=== PATIENT | female | born 1985 | race Caucasian/White ===

== ENCOUNTER 2017-12-22 19:23 | Emergency (ER) | payer OTHER, SELFPAY ==
[2017-12-22 19:24] VITALS: BP 129/79; PULSE 70; RESP 18; TEMP 36.6; O2SAT 100; BMI 21.4
[2017-12-22] MEDS: Ondansetron 4 MG/2 ML Vial IV (19:56)
[2017-12-22] MEDS: Morphine 4 MG/ML Syringe IV (19:56)
[2017-12-22 20:06] LABS: Bacteria 0 SEEN /hpf (None Seen); Mucous, Urine 0 SEEN /hpf (<or=2+); Red Blood Cells-Urine 0 SEEN /hpf (0-5); White Blood Cells 0 SEEN /hpf (0-5)
[2017-12-22 20:09] LABS: Absolute Lymphocyte Count 2.33 X10^3/ul (0.83-4.51); Absolute Neutrophil Count 3.9 X10^3/uL (2.0-7.7); Basophil# 0.02 X10^3/uL; Basophil% 0.3 % (0-1); Eosinophil# 0.05 X10^3/uL; Eosinophils% 0.7 % (0-5); Hematocrit 39.4 % (37-47); Hemoglobin 13.1 g/dl (12.0-15.0); Lymphocyte # 2.33 X10^3/ul (4.0); Lymphocyte % 34.7 % (19-41); Mean Corp Hgb Conc 33.2 g/gl (32-36); Mean Corpuscular Volume 93.4 fL (81-99); Mean Platelet Vol. 11.5 fl (6.2-12.0); Monocyte# 0.37 X10^3/uL; Monocyte% 5.5 % (0-10); Neutrophil # 3.94 X10^3/uL (2.7-7.7); Neutrophil % 58.8 % (47-70); Platelet Count 152 K/mm3 (150-450); RBC Distribution Width CV 12.2 % (11.6-14.6); RBC Distribution Width SD 41.1 fl (35.1-43.9); Red Blood Count 4.22 M/mm3 (4.2-5.4); White Blood Count 6.7 K/mm3 (4.4-11.0)
[2017-12-22 20:10] LABS: Color, Urine Yellow (Yellow); Glucose, Dipstick Normal (Normal); Ketone-Dipstick Negative (Negative); Leukocyte Esterase-Dipstick Negative /ul (Negative); Nitrite-Dipstick Negative (Negative); Occult Blood-Urine 10 /ul (Negative); POSITIVE COUNT NO; POSITIVE DIFFERENTIAL NO; POSITIVE MORPHOLOGY NO; Protein-Dipstick Negative (Negative); Urine Bilirubin Dipstick Negative (Negative); Urine Clarity Sl. Cloudy (Clear); Urine Urobilinogen Normal (Normal); Urine pH 6.5 (5.0 - 8.0)
[2017-12-22 20:18] LABS: Squamous Epithelial Cells - UA 0-5 SEEN /hpf (5-10)
[2017-12-22 20:29] LABS: Anion Gap 4 (5-15); BUN 15 mg/dL (7-18); BUN/Creat Ratio 19.1 RATIO (10-20); Calcium,Total 8.6 mg/dL (8.5-10.1); Chloride 105 mmol/L (98-107); Creatinine, Serum 0.79 mg/dL (0.55-1.02); EST Glomerular Filtration Rate 89 mL/min (>60); Est Glom Filt Rate - Afr Amer 108 mL/min (>60); Estimated Creatinine Clearance 102.01 ml/min; Glucose 84 mg/dL (74-106); Potassium 3.6 mmol/L (3.5-5.1); Sodium Level 138 mmol/L (136-145)
[2017-12-22 20:36] LABS: Pregnancy, Serum, hCG Quali. NEGATIVE Negative (0-9 Nonpreg)
--- NOTE | 2017-12-22 20:56 | ED.VISSUMM ---
- ER Visit Summary Date of Service: 12/22/17 Chief Complaint: Atraumatic bilateral low back pain History of Present Illness: The patient is a 32 F who presents with bilateral low back pain that she localizes over the lumbar region. She reports history of IgA nephropathy that was diagnosed 10 years ago. She denies fever, chills night sweats. She does report nausea without vomiting or diarrhea. She denies dysuria, frequency, urgency or hematuria. There is no other symptoms or complaints. Please read written note for complete detail Physical Examination: Vital signs noted and blood pressure is slightly elevated 129/79. HEENT exam is unremarkable. Heart is regular without murmur, gallop or rub. S1 and S2 are normal. Lungs are clear to auscultation with good movement of air bilaterally. Abdomen soft nontender bowel sounds are present normal. There is no paraspinal megaly. There is no CVA tenderness. There is no reproducible low back pain. There is no pain with rotation. There is no neurovascular findings lower extremity. Test Results: CBC and BMP are unremarkable. UA revealed blood macro, 10. Serum test was negative. This was obtained because she has been bleeding for 14 days and her last menses was not normal. Emergency Department Course and Treatment: Because of the abnormal vaginal bleeding serum qualitative test was obtained. With her history of nephropathy BMP and UA was obtained. Since the pain was not reproducible CBC was obtained to evaluate for anemia infection etc. Treatment Plan: Patient was medicated with 4 mg of Zofran 4 mill grams of morphine IV push. Her pain on reassessment was a 2. She does not appear in any discomfort. She had no questions and felt comfortable going home. Disposition: Discharged home in stable condition Impression: Atraumatic bilateral lumbar pain This note was generated with [employer] dictation software. It may contain incorrect words, spelling, and punctuation that were not noted in review of the chart prior to signing ED Disposition - Plan for ED Patient: Disposition: Home or Assisted Living Chief Complaint: Back Instructions: ED Neck Back Pain General Referrals: Criss Turpin NP-C [Primary Care Provider] - 3-5 Days if not improving
[2017-12-22 21:20] VITALS: RESP 18
== END 2017-12-22 21:21 | disposition home or self-care (01) ==
PROVIDERS: Emergency Provider Emergency Medicine; Family Provider Nurse Practitioner; PCP Nurse Practitioner
DX: M54.5 Low back pain (principal); N02.8 Recurrent and persistent hematuria with other morphologic changes
CPT/HCPCS: 80048; 81001; 84703; 85025; 96374; 96375; 99283; A4216; J2405

== ENCOUNTER → 2018-11-01 | Outpatient (CLI) | payer OTHER, SELFPAY ==
[2018-11-01 15:49] VITALS: BMI 19.8
--- NOTE | 2018-11-01 15:56 | RAD_ITS ---
STUDY: X-RAY - LEFT HAND REASON FOR EXAM: Female, 33 years old. Pain after acute blunt trauma. TECHNIQUE: 3 view(s) of the hand. COMPARISON: None. FINDINGS: Normal radiocarpal articulation. Normal distal radioulnar joint. Normal visualized carpal bones. Normal carpal articulations Normal carpometacarpal articulation of the thumb. Normal second through fifth carpometacarpal joints. Normal metacarpi. Normal metacarpophalangeal joint of the thumb. Normal interphalangeal joint of the thumb. Normal proximal and distal phalanges of the thumb. Normal metacarpophalangeal joints of the second through fifth fingers. Normal proximal and distal interphalangeal joints of the second through fifth fingers. Normal phalanges of the second through fifth fingers. The soft tissue structures are unremarkable. RAD/Hand Min 3 Views IMPRESSION: Normal x-ray examination of the hand. Electronically Signed: Michelle Payne MD at 16:17 EDT , Service support ,
== END | disposition home or self-care (01) ==
LOC: HPRAD 15:55
PROVIDERS: Family Provider Nurse Practitioner; PCP Nurse Practitioner; Referring Provider Physician Assistant; Visit Provider Physician Assistant
DX: S69.92XA Unspecified injury of left wrist, hand and finger(s), initial encounter (principal)
CPT/HCPCS: 73130

== ENCOUNTER 2021-01-08 16:00 | Outpatient (CLI) | payer OTHER, SELFPAY ==
[2021-01-08 16:25] VITALS: BP 104/57; PULSE 53; RESP 16; TEMP 36.7; O2SAT 100; BMI 20.3
[2021-01-08] MEDS: 0.9% Saline Lock 10 ML Syringe IV (16:38)
[2021-01-08 17:15] VITALS: BP 106/55; PULSE 82; RESP 16; TEMP 37.2; O2SAT 100
[2021-01-08 18:19] VITALS: BP 106/55; PULSE 55; RESP 16; TEMP 36.8; O2SAT 100
== END 2021-01-08 18:20 | disposition home or self-care (01) ==
LOC: MS3OUT 16:00 → MS3 16:01
PROVIDERS: PCP Nurse Practitioner; Referring Provider Nurse Practitioner Adult Health; Visit Provider Nurse Practitioner Adult Health
DX: Z23 Encounter for immunization (principal); U07.1 COVID-19
CPT/HCPCS: J7050; M0245; Q0245; A4216

== ENCOUNTER 2021-04-10 17:51 | Day surgery (SDC) | payer OTHER, SELFPAY ==
--- NOTE | 2021-04-10 | FALS_PTH ---
PATIENT: KATLIN ROSENTHAL LOC: [facility] [place] U#:[id number] AGE/SX: 35/F ROOM: RE04/10/[address]: Dr. Joan Morris, MDDOB: 1985 BED: DIS: 04/11/2021 SPEC #: [id number] RECD: 04/12/21 07:37 STATUS: TIFFANI LONGKoffi #: [id number] SUSY: 04/10/21 00:[address]: Joan Morris DEPT: SURGICAL PATHOLOGY RECD BY: Rafael Gonzalez ENTERED: 04/12/21 11:24 SP TYPE: FALL TUBES OTHR DR: Criss Turpin NP-C Tissues: A - Fallopian tube B - OVARIAN CYST C - OVARIAN CYST Procedures: Surgery Specimen Level II Surgery Specimen Level IV HEADER OPERATION: Diagnostic laparoscopy, bilateral salpingectomy, bilateral ovarian cystectomy PRE-OP DIAGNOSIS: Torsion of left ovary, abdominal pain TISSUE SUBMITTED: A - Bilateral fallopian tubes, B - Left ovarian cyst wall, C - Right ovarian cyst wall MICROSCOPIC DIAGNOSIS A. Bilateral fallopian tubes, salpingectomy: Bilateral fallopian tubes, no pathologic diagnosis. B. Left ovarian cyst wall: Portion of ovarian tissue with corpus luteal cyst. C. Right ovarian cyst wall: Portion of ovarian tissue consistent with simple serous cystadenoma. SJ:jim 04/13/2021 COMMENT Case has been reviewed in consultation with Dr. Licona who concurs with the above diagnosis. IDC:AM MICROSCOPIC DESCRIPTION Slides are reviewed. GROSS DESCRIPTION A - Received in fixative is one container labeled with the patient's name and designated bilateral fallopian tubes. The specimen consists of bilateral fallopian tubes including fimbrial ends measuring 6 cm in length and 0.6 cm in diameter and 5.5 cm in length and 0.6 cm in diameter. The fallopian tubes are not identified as right or left. Sections reveal unremarkable cut surfaces. [employer] Biller sections are submitted in two cassettes with each cassette containing one fallopian tube. B - Received in fixative is one container labeled with the patient's name and designated left ovarian cyst wall. The specimen consists of multiple pieces of siegel soft tissue that in aggregate measure 2 x 1.5 x 0.3 cm. The larger pieces are bisected. The entire specimen is submitted in one cassette. C - Received in fixative is one container labeled with the patient's name and designated right ovarian cyst wall. The specimen consists of a previously opened piece of siegel soft tissue consistent with cyst wall measuring 5.5 x 1 x 0.5 cm. The outer surface of the cyst is smooth. The inner surface is focally ragged. The cyst wall measures up to 0.2 cm in thickness. Also present in the container is detached pieces of siegel soft tissue measuring 2 x 0.2 x 0.1 cm. The entire specimen is submitted in two cassettes. / JACKLYN:jim 04/12/2021 TC:1 CPT: 77262 x2, 93641 x2
[2021-04-10 17:51] VITALS: BP 137/74; PULSE 73; RESP 14; TEMP 37; O2SAT 100; BMI 20.7
--- NOTE | 2021-04-10 18:04 | EDS_ITS ---
HPI HPI - GI History of Present Illness Chief Complaint: Abd Pain Narrative Narrative: Patient with remote history of appendectomy presents with right upper quadrant pain that she has had for the last week. She states her pain was intermittent and she had been feeling well all week. On Monday, 4 days ago, she had nausea and vomited twice which resolved. Her right upper quadrant abdominal pain improved and was gone last evening. This morning when she woke up, she started feeling badly again. She was able to eat breakfast which may have made her pain worse in her right upper quadrant. She denies any fevers or chills. No other exacerbating or alleviating factors. She denies any dysuria or hematuria. Last normal menstrual period last month around March 13. She states she is not because her had a vasectomy. Her pain is in the right upper quadrant of her abdomen radiating towards the epigastrium and also down at times. [facility] Medical History Arthritis Kidney disease Pulmonary valve anomaly Home Medications spironolactone 25 mg PO BID 12/22/17 [History Last Taken Unknown] Allergy/AdvReac Type Severity Reaction Status Date / Time azithromycin [From Zithromax] Allergy Hives Verified 04/10/21 17:53 propoxyphene Allergy Hives Verified 04/10/21 17:53 [From Darvocet-N] Surgical History History of appendectomy Social History Smoking Status: Never smoker alcohol intake: never ROS ROS ED ROS Narrative Constitutional: No fever, no chills. HEENT: No sore throat. No neck pain. No loss of vision. No rhinorrhea. Cardiovascular: No chest pain. No palpitations. No pedal edema. Respiratory: No cough, no shortness of breath. Abdominal: Right upper quadrant abdominal pain. No nausea. No vomiting currently, resolved on Monday, 4 days ago. Genitourinary: No dysuria. No hematuria. Musculoskeletal: No myalgias. No arthralgias. Neurologic: No headaches. No dizziness. No lightheadedness. Skin: No rash. No change in color. Psychiatric: No depression. No anxiety. EXAM Physical Exam Narrative Exam Narrative: Afebrile. Vital signs noted. HEENT: Normocephalic. Atraumatic. PERRL, EOMI. Neck soft and supple. No point tenderness or step off. Cardiovascular: Regular rate and rhythm. No murmurs, rubs, or gallops appreciated. Respiratory: No tachypnea. Lungs clear to auscultation bilaterally. Gastrointestinal: Abdomen soft, tenderness to palpation right upper quadrant and epigastrium with normoactive bowel sounds. No rebound or guarding, as she has inconsistent questionable Law sign. Neurological: Awake. Alert. Nonfocal, nonlateralizing. Skin: No rash. Normal color. No pallor. Musculoskeletal: No pedal edema. Full range of motion extremities. Const Vital Signs: 04/10/21 17:51 04/10/21 19:51 Temperature 98.6 F Temperature Source Temporal Pulse Rate 73 88 Respiratory Rate 14 18 Blood Pressure 137/74 H 134/58 H Blood Pressure Mean 95 83 Pulse Ox 100 99 Oxygen Delivery Method Room Air Room Air MDM MDM MDM Narrative Medical decision making narrative: Comprehensive work-up was pursued. Given her right upper quadrant pain ultrasound will be obtained along with CBC, CMP, and lipase. She was administered a bolus of normal saline intravenously along with morphine and ondansetron. She has a slightly elevated white count of 11.1, hemoglobin stable at 13.0. Her comprehensive metabolic panel is grossly unremarkable. LFTs are normal. Lipase is normal at 142. I added a serum test which is negative. This is because she required more morphine and additional dose was given. This controlled her pain mildly, but then she began having increasing pain, crying on the bed. She now has lower quadrant abdominal pain mainly on the right. She states that the pain also radiates towards the left. She was given a milligram of Dilaudid intravenously for analgesia. Initially I had ordered a gallbladder ultrasound which shows unremarkable gallbladder. There is a moderate amount of free fluid in the abdomen. The neurology technologist had been called in so I did order a pelvic ultrasound which is currently pending. Results of her pelvic ultrasound show she has bilateral ovarian cysts, the right ovary has good blood flow and has a 5 x 3 cm cyst. Of concern is her 7 x 6 left ovary which appears heterogeneous with diminished blood flow with concern for o varian torsion. CT of the abdomen and pelvis shows moderate ascites along with the enlarged left ovary. As there is concern for ovarian torsion, I discussed the patient with the nurse practitioner, Parvin Randall, then with Dr. Dumont, who the patient states is her INSPECTOR PACKER. Patient will be made n.p.o. She required another 1 mg of Dilaudid as her pain was returning. She will be taken to the OR in stable condition. Lab Data Attestation: I reviewed the patient's lab results. Labs: Laboratory Results - last 24 hr 04/10/21 04/10/21 04/10/21 18:00 18:00 18:05 WBC 11.1 H RBC 3.95 L Hgb 13.0 Hct 37.4 MCV 94.7 MCH 32.9 H MCHC 34.8 RDW Std Deviation 39.9 RDW Coeff of Mai 11.6 Plt Count 166 MPV 11.7 Immature Gran % (Auto) 0.400 Neut % (Auto) 70.9 H Lymph % (Auto) 21.9 Prowers % (Auto) 5.9 Eos % (Auto) 0.5 Baso % (Auto) 0.4 Absolute Neuts (auto) 7.9 H Absolute Lymphs (auto) 2.44 Nucleated RBC % 0 Sodium 138 Potassium 3.5 Chloride 105 Carbon Dioxide 28.0 Anion Gap 5 BUN 15 Creatinine 0.92 Estim Creat Clear Calc 82.74 Est GFR (MDRD) Af Amer 89 Est GFR (MDRD) Non-Af 74 BUN/Creatinine Ratio 16.4 Glucose 95 Calcium 9.0 Total Bilirubin 0.50 AST 21 ALT 31 Alkaline Phosphatase 38 L Total Protein 6.8 Albumin 3.8 Globulin 3.0 Albumin/Globulin Ratio 1.3 Lipase 142 Serum , Qual NEGATIVE Radiography Diagnostic Testing: Clinical Impression(s) from Imaging Studies Gallbladder Ultrasound 04/10/21 18:04 IMPRESSION: Moderate volume ascites. No other acute findings. Refer to pelvic ultrasound and CT abdomen and pelvis same date for discussion on pelvic findings. Electronically Signed: Floyd Randle MD at 20:50 EST , Transvaginal US 04/10/21 19:34 IMPRESSION: Enlarged and heterogeneous left ovary with severely diminished blood flow. This is concerning for ovarian torsion. Electronically Signed: Floyd Randle MD at 21:28 EST , ADDENDUM: 04/10/21 2148 IMPRESSION: Enlarged and heterogeneous left ovary with severely diminished blood flow. This is concerning for ovarian torsion. N.B. : AMINAH Monroy, confirmed on 04/10/2021 21:41:54 (ET) that the healthcare facility has received the radiology report. Electronically Signed: Floyd Randle MD at 21:28 EST , Abdomen/Pelvis CT 04/10/21 19:55 IMPRESSION: Enlarged and abnormal appearing left ovary is consistent with ovarian torsion which was best characterized on pelvic ultrasound same date. Moderate volume complex ascites in the abdomen and pelvis. Electronically Signed: Floyd Randle MD at 21:36 EST , Critical Care Time Critical care time (excluding procedures): 30-74 minutes (31), Including time spent:, Discussing w/Patient &/or Family/Die Trouble Shooter, Discussing w/Consultants and Arranging Admission or Transfer Discharge Plan Dx/Rx/DC Orders Clinical Impression: Torsion of left ovary, Abdominal pain Disposition Disposition: Acute Care [facility]
--- NOTE | 2021-04-10 18:04 | US_ITS ---
INDICATION: PAIN EXAMINATION: US Abdomen RUQ (limited) TECHNIQUE: Montanez-scale and color Doppler imaging was performed of the right upper abdominal quadrant. COMPARISON: None. Findings: The liver is homogenous and normal in echogenicity and echotexture. There is no evidence of contour nodularity. No focal hepatic mass is identified. The main portal vein is normal in size and patent demonstrating hepatopetal flow. The gallbladder is unremarkable without evidence of stones, wall thickening. There is pericholecystic fluid. sSonographic Law''s tenderness is not appreciated. There ies no evidnce of intrahepatic biliary ductal dilatation. The CBD is nondilated measuring 3 mm at the level of the henrry hepatis. The visualized portions of the pancreas are unremarkable without evidence of focal or diffuse enlargement. Specifically, the tail is obscured by overlying bowel gas. Right kidney measures 10.5 cm in length. It is normal in echogenicity. No focal renal lesion is identified. There is no evidence of hydronephrosis. Moderate volume free fluid in the abdomen. US/Gallbladder IMPRESSION: Moderate volume ascites. No other acute findings. Refer to pelvic ultrasound and CT abdomen and pelvis same date for discussion on pelvic findings. Electronically Signed: Floyd Randle MD at 20:50 EST ,
[2021-04-10] MEDS: Morphine 4 MG/ML Syringe IV ×2 (18:10→18:54)
[2021-04-10] MEDS: Ondansetron 4 MG/2 ML Vial IV (18:10)
[2021-04-10] MEDS: 0.9% Normal Saline 1,000 ML 1000 ML IV (18:11)
[2021-04-10 18:26] LABS: Absolute Lymphocyte Count 2.44 X10^3/uL (0.83-4.51); Absolute Neutrophil Count 7.9 X10^3/uL (2.0-7.7); Basophil# 0.05 X10^3/uL; Basophil% 0.4 % (0-1); Eosinophil# 0.06 X10^3/uL; Eosinophils% 0.5 % (0-5); Hematocrit 37.4 % (37-47); Lymphocyte # 2.44 X10^3/ul (0.83-4.51); Lymphocyte % 21.9 % (19-41); Mean Corp Hgb Conc 34.8 g/dL (32-36); Mean Corpuscular Hgb 32.9 pg (27.0-32.0); Mean Corpuscular Volume 94.7 fL (81-99); Mean Platelet Vol. 11.7 fl (6.2-12.0); Monocyte# 0.66 X10^3/uL; Monocyte% 5.9 % (0-10); NRBC Flagged by Analyzer 0 % (0-5); Neutrophil # 7.86 X10^3/uL (2.7-7.7); Neutrophil % 70.9 % (47-70); Platelet Count 166 K/mm3 (150-450); RBC Distribution Width CV 11.6 % (11.6-14.6); RBC Distribution Width SD 39.9 fl (35.1-43.9); Red Blood Count 3.95 M/mm3 (4.2-5.4); White Blood Count 11.1 K/mm3 (4.4-11.0)
[2021-04-10 18:38] LABS: ALB/GLOB Ratio 1.3 RATIO (0.9-2.4); AST(SGOT) 21 U/L (15-37); Alanine Aminotransfer ALT/SGPT 31 U/L (13-56); Albumin, Serum 3.8 g/dL (3.2-5.0); Alkaline Phosphatase 38 U/L (45-117); Anion Gap 5 (5-15); BUN 15 mg/dL (7-18); BUN/Creat Ratio 16.4 RATIO (10-20); Chloride 105 mmol/L (98-107); Creatinine, Serum 0.92 mg/dL (0.55-1.02); EST Glomerular Filtration Rate 74 mL/min (>60); Est Glom Filt Rate - Afr Amer 89 mL/min (>60); Estimated Creatinine Clearance 82.74 ml/min; Glucose 95 mg/dL (74-106); Lipase 142 U/L (73-393); Potassium 3.5 mmol/L (3.5-5.1); Protein, Total 6.8 g/dL (6.4-8.2); Sodium Level 138 mmol/L (136-145)
--- NOTE | 2021-04-10 19:34 | US_ITS ---
ACR Level 3 findings have been noted. An addendum which confirms receipt of the report will follow. INDICATION: Pain EXAMINATION: US Transvaginal Non-OB TECHNIQUE: Transvaginal (for optimal evaluation of the adnexa) pelvic ultrasound was performed. Grayscale, spectral waveform, and color flow Doppler evaluation of the adnexa. COMPARISON: None. FINDINGS: UTERUS: Anteverted. The uterus measures 9.4 x 5.7 x 5.1 cm. There is no uterine mass. The endometrial stripe measures 4 mm in AP diameter which is within normal limits. RIGHT OVARY: Measures 5.3 x 3.9 x 3.8 cm. Non-enlarged, normal echogenicity. There is normal arterial inflow and venous outflow present in the right ovary. There is a simple 5 cm well-circumscribed anechoic cyst. LEFT OVARY: Measures 7.6 x 6.8 x 3.9 cm. Enlarged and heterogeneous.. Venous and arterial outflow is severely diminished. FREE FLUID: Moderate volume. US/Transvaginal Non- IMPRESSION: Enlarged and heterogeneous left ovary with severely diminished blood flow. This is concerning for ovarian torsion. Electronically Signed: Floyd Randle MD at 21:28 EST ,
[2021-04-10] MEDS: HYDROmorphone 1 MG/ML Syringe IV ×2 (19:39→22:03)
[2021-04-10 19:51] VITALS: BP 134/58; PULSE 88; RESP 18; O2SAT 99
--- NOTE | 2021-04-10 19:55 | CT_ITS ---
INDICATION: Pain EXAMINATION: CT Abdomen And Pelvis W/O Contrast Injection TECHNIQUE: Helically acquired images were obtained of the abdomen and pelvis without the use of IV contrast. A radiation dose optimization technique was used for this scan. Oral contrast: None. COMPARISON: Pelvic ultrasound same date FINDINGS: Evaluation of the solid organs and vascular structures is limited without intravenous contrast. Visualized lung bases: Unremarkable Liver: Unremarkable Gallbladder: Unremarkable Spleen: Unremarkable Pancreas: Unremarkable Adrenal Glands: Unremarkable Kidneys: Unremarkable Vasculature: Unremarkable GI Tract: Unremarkable Lymphadenopathy: None Peritoneum: Moderate volume complex ascites in the abdomen and pelvis. Bladder: Unremarkable Reproductive organs: The left ovary is enlarged and hyperdense. 4.5 cm cyst in the right ovary. Bones/Soft tissues: No suspicious osseous or soft tissue lesions CT/Abdomen/Pelvis without Cont IMPRESSION: Enlarged and abnormal appearing left ovary is consistent with ovarian torsion which was best characterized on pelvic ultrasound same date. Moderate volume complex ascites in the abdomen and pelvis. Electronically Signed: Floyd Randle MD at 21:36 EST ,
[2021-04-10 20:48] LABS: Internal QC Validated? YES +Cl - CLEAR BKGD; Pregnancy, Serum, hCG Quali. NEGATIVE Negative
[2021-04-10 21:00] VITALS: BP 128/72; PULSE 92; RESP 16; TEMP 37.2; O2SAT 98
[2021-04-10 21:55] VITALS: BP 118/67; PULSE 72; RESP 16; TEMP 36.9; O2SAT 100; BMI 20.7
[2021-04-10 22:15] VITALS: BP 118/78; PULSE 68; RESP 14; TEMP 36.9; O2SAT 98
--- NOTE | 2021-04-10 22:23 | HP.PCM_ITS ---
History and Physical Date of Admission: 04/10/21 female who presents with worsening abdominal/pelvic pain. pt reports pain present all week with some nausea, vomiting earlier in week and dry heaving. pt thought she had stomach bug. pt denies fevers. 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 states pain more severe in LLQ and RLQ. pt has h/o irregular menses. uses vasectomy for BC. PSX: lap appendectomy age 10 obhx: x3 EXAM: gen: female laying in bed- appears to be in discomfort from pain Abd: + guarding, tender to light palpation in Lower quadrants Bimaual: ++ tenderness, uterus freely mobile. unable to palpate cyst due to patient discomfort with exam. TV US: FINDINGS: UTERUS: Anteverted. The uterus measures 9.4 x 5.7 x 5.1 cm. There is no uterine mass. The endometrial stripe measures 4 mm in AP diameter which is within normal limits. RIGHT OVARY: Measures 5.3 x 3.9 x 3.8 cm. Non-enlarged, normal echogenicity. There is normal arterial inflow and venous outflow present in the right ovary. There is a simple 5 cm well-circumscribed anechoic cyst. LEFT OVARY: Measures 7.6 x 6.8 x 3.9 cm. Enlarged and heterogeneous.. Venous and arterial outflow is severely diminished. FREE FLUID: Moderate volume. Assessment & Plan Assessment/Plan (1) Torsion of left ovary: (2) Abdominal pain: QUALIFIERS: Abdominal location: generalized Qualified Code(s): R10.84 - Generalized abdominal pain PLAN: Ovarian torsion ER consultaiton complete- recommend OR for dx laparoscopy, ovarian cystectomy, possible oophorectomy, bilateral salpingectomy. pt counseled on risks of surgery including but not limited to anesthesia, bleeding, infection, injury to pelvic structures including bladder, bowel, vessels, ureters. pt understands risk of loss ovary. pt does wish to have more children- after discussion would like bilateral salpingectomy during procedure if able. pt understands and accepts blood transfusion if needed. NPO PRE OP orders completed OR team notified Will plan dc home after surgery if no complications motrin/tylenol for post op pain.
--- NOTE | 2021-04-10 23:40 | PCM.OPRPT ---
Problems Associated Problem List Diagnoses (1) Hemoperitoneum: (2) Hemorrhagic cyst of left ovary: (3) Ovarian cyst: Report of Operation Date of Procedure: 04/10/21 Pre-Operative Diagnosis: ovarian torsion, abdominal pain, ovarian cyst Post-Operative Diagnosis: Hemoperitoneum, Left hemorrhagic ovarian cyst, Right ovarian cyst, Surgery/Procedure Performed:: Diagnostic laparoscopy, Removal of hemoperitoneum bilateral ovarian cystectomy, Bilateral salpingectomy Description of Surgical Findings:: approximately 500cc Hemoperitoneum noted. Active Left ovarian hemorrhagic cyst, 5cm Right ovarian simple cyst, both ovaries appear otherwise normal- good tissue, no signs of Compromised blood supply Surgeon: Joan Morris prototype engineer: Ayesha Kong Type of Anesthesia: General and Local Special Medications: 0.5% marcaine Specimen's removed: Bilateral fallopian tubes, Right ovarian cyst wall, Left ovarian cyst wall Drains: none Estimated Blood Loss (mL): 10cc Fluids Replaced: 700 Description of Procedure: After informed consent was obtained patient was taken to the operating room she was placed in supine position she was given anesthesia. She was then placed in the [facility] and she was prepped and draped in normal sterile fashion. Bladder was drained prior to the start of procedure approximately 50cc of clear yellow urine was expelled. At this time attention was turned to the vaginal portion where weighted speculum placed at posterior fornix vagina single-tooth tenaculum was used to gently grasp the internal the cervix. uterus was gently sounded to approximately 8cm. Uterine manipulator was placed without difficulty. Legs then placed in parallel with the abdomen the tenaculum and the weighted speculum were removed. 2 towel clamps were placed inferior to umbilicus. After Marcaine was injected inferior to umbilicus a small incision was made and a 5 mm trocar was placed under direct visualization. CO2 gas was used to insufflate the intra-abdominal cavity. At this time upon inspection large hemoperitoneum was noted with active hemorrhagic bleeding cyst of the left ovary. Small simple appearing cyst approximately 4 to 5 cm of the right ovary. Both ovaries did not appear to be compromised with blood supply. Large organized clot in the cul-de-sac. At this time then the LLQ port was placed again Marcaine was injected small incision was made a knife and the 5 mm trocar was placed. this was repeated on right side. At this time copious irrigation of the pelvic cavity were performed. At this time then tubes were traced back to the fimbriated ends. Ligasure was used to coagulate and ligate along mesosalpynx bilaterally tubes removed completely. Good hemostasis was appreciated. At this time the left hemorrhagic cyst was appreciated and the cyst wall was removed with gentle opposing traction. Good ovarian tissue was noted. LigaSure was used to coagulate bleeding of the ovary. The right cyst on the ovary was then evaluated appeared to be simple. With gentle manipulation the cyst ruptured-light straw-colored fluid. The cyst wall was removed with gentle opposing traction. Hemostasis was appreciated using the LigaSure. Good ovarian tissue remained. At this time Nitin was placed over both sites of ovarian cyst wall removal. No active bleeding appreciated at this time. At this time procedure was deemed complete successful. The gas was desufflated on from the intra-abdominal cavity. The trochars were removed. Skin was closed using 4-0 Monocryl in a subcutaneous fashion. Dermabond glue was placed. Instrument lap and needle counts were correct ?2. The uterine manipulator was removed. Vaginal sweep was performed it was negative. There were no complications anticipated normal postoperative course for this patient. Procedure Start Time: 23:11 Procedure Stop Time: 23:48 Complications none Admit VTE Documentation VTE Present on Admission: Yes VTE Mechan Device Prophylaxis: SCD's VTE Pharm Prophylaxis ordered?: No
[2021-04-10] MEDS: Bupivacaine Mpf 0.5% 30 ML VIAL (23:47)
--- NOTE | 2021-04-10 23:48 | DCINST_ITS ---
Discharge Instructions Procedure Other Diet Discharge Diet: No restrictions Activity May resume sexual activity in: 2 weeks Lifting Restrictions: 20-25 lbs Dressing / Incision Call your doctor if your incision/area has: Continuous Slow Oozing, Sudden Increased Bleeding, Increased Pain/ Swelling, Increased Redness, Foul Smelling Discharge and Swelling at the incision site Call your doctor if you observe: Fever of 101 or Higher, Inability to urinate, Inability to have a bowel movement, Using more than 1 pad per hour and Uncontrolled pain Additional Dressing/Incision Instructions:: You have skin glue over your incision sites, do not pick off. You may shower and let the soap and water run over the incision sites and dab dry. Follow Up Care Please Follow Up With: Joan Morris MD When: 1-2 weeks post OP if you need an appointment please call [phone] Test Results: Test results from this visit will be discussed in further detail at your follow-up appointment, if applicable. Discharge Plan Admission Attending Provider: Joan Morris Primary Care Provider: Criss Turpin NP Discharge Orders/Prescriptions Prescriptions: New ibuprofen 600 mg tablet 600 mg PO 4X/DAY PRN PRN (Reason: Pain) Qty: 30 RF: 0 ibuprofen 600 MG tablet 600 mg PO 4X/DAY PRN PRN (Reason: Pain) Qty: 30 RF: 0 Continued spironolactone 50 MG tablet 25 mg PO BID RF: 0 Referrals / Follow Up: Criss Turpin NP, [facility] [Primary Care Provider] - Disposition Disposition (needs filled in before D/C Order can be placed): Home, Self Care
[2021-04-11] VITALS (8 sets, daily range): BP systolic 107–118; BP diastolic 63–78; PULSE 57–70; RESP 16; TEMP 36.8–37.1; O2SAT 95–100
== END 2021-04-11 02:31 | disposition home or self-care (01) ==
LOC: ED 21:52 → SDC 22:03 → MS3 22:57
PROVIDERS: Emergency Provider Emergency Medicine; PCP Nurse Practitioner; Visit Provider Obstetrics & Gynecology
PROC: (CPT 49320; principal; 2021-04-10 22:20)
DX: N83.12 Corpus luteum cyst of left ovary (principal); D27.0 Benign neoplasm of right ovary; N83.512 Torsion of left ovary and ovarian pedicle; K66.1 Hemoperitoneum; N18.9 Chronic kidney disease, unspecified; M19.90 Unspecified osteoarthritis, unspecified site; Q22.3 Other congenital malformations of pulmonary valve; Z86.16 Personal history of COVID-19
CPT/HCPCS: 58662; 58661; 00840; 74176; 76705; 76830; 80053; 83690; 84703; 85025; 88302; 88305; 93976; 99284; J7030; A4216; J2405

== ENCOUNTER → 2021-07-05 | Outpatient (CLI) | payer OTHER, SELFPAY ==
--- NOTE | 2021-07-05 13:33 | VDLE_ITS ---
Reason For Study: Pain Procedure LEFT This is a venous duplex using B-mode, color GSV is normal. flow and spectral Doppler. CFV is compressible, spontaneous, phasic, Exam performed in department. competent, and demonstrates normal A preliminary report was called and/or faxed augmentation. to [facility]. FV is compressible, spontaneous, phasic, competent and demonstrates normal augmentation. POP V is compressible, spontaneous, phasic, competent and demonstrates normal augmentation. T/P Trunk is compressible. PTV is compressible. LT PerV is compressible. VL/Venous Duplex US, Unilateral Interpretation Summary Deep veins of the left lower extremity are patent and compressible segmentally. There is no evidence of left lower extremity deep vein thrombosis. Valvular competence appears intac t within the proximal deep venous system on the left . The left great saphenous vein appears patent a nd compressible segmentally. Ordering Physician: Hiral Jackson Referring Physician: Criss Turpin Performed By: Donna Sandhu RVT
== END | disposition home or self-care (01) ==
LOC: CVS 13:31
PROVIDERS: PCP Nurse Practitioner; Referring Provider Internal Medicine; Visit Provider Internal Medicine
DX: M79.662 Pain in left lower leg (principal)
CPT/HCPCS: 93971

== ENCOUNTER → 2024-10-09 | Outpatient (CLI) | payer OTHER, SELFPAY ==
--- NOTE | 2024-10-09 18:00 | CT_ITS ---
PROCEDURE: SINUS/FACIAL BONE 10/09/2024 REASON FOR EXAM: ATYPICAL FACIAL PAIN TECHNIQUE: SINUS/FACIAL BONE Coronal and Sagittal reconstruction series were provided. One or more dose reduction techniques were used (e.g., Automated exposure control, adjustment of the mA and/or kV according to patient size, use of iterative reconstruction technique). RADIATION DOSE SUMMARY: CTDlvol: 33.06 mGy DLP: 914.63 mGycm COMPARISON: None FINDINGS: Frontal: Opacification of the right frontal sinus. Ethmoid: Opacification of the right ethmoid sinus. Sphenoid: The sphenoid sinuses clear. Maxillary: Partial opacification of the maxillary sinuses bilaterally more prominent on the right side. Turbinates: Hypertrophy of the right middle turbinate. Nasal Septum: Midline Mastoids/Middle Ears: Unremarkable CT/Sinus/Facial Bone IMPRESSION: Opacification of the right frontal sinus and right ethmoid sinus. Partial opac ification of the maxillary sinuses worse on the right side. Mucosal hypertrophy at the right ostiomeatal complex. Reading Location: [facility]
== END | disposition home or self-care (01) ==
LOC: CT 17:58
PROVIDERS: PCP Nurse Practitioner Family; Referring Provider Otolaryngology; Visit Provider Otolaryngology
DX: G50.1 Atypical facial pain (principal)
CPT/HCPCS: 70486